=== PATIENT | male | born 1990 | race Caucasian/White ===

== ENCOUNTER 2017-02-25 00:38 | Emergency (ER) | payer SELFPAY ==
[2017-02-25] MEDS ORDERED: NS 0.9% 1000 ML* 1,000 ML IV ONE (01:22)
[2017-02-25] MEDS ORDERED: Tetan/Diph/Pertus SYR(Tdap)* 0.5 ML SYR(BOOSTRIX) use SYR IM ONE (01:26)
[2017-02-25 02:08] LABS: Hematocrit 37 % (42-52); Hemoglobin 12.9 g/dl (14.0-18.0); Mean Corpuscular HGB Conc 35 g/dl (31-36); Mean Corpuscular Hemoglobin 29 pg (27-31); Mean Corpuscular Volume 85 fL (80-94); Mean Platelet Volume 8 um3 (7.4-10.4); Red Cell Distribution Width 13 % (10.5-15); White Blood Count 14.5 10^3/ul (3.5-10.8)
[2017-02-25 02:23] LABS: Albumin 4.5 g/dL (3.2-5.2); BUN/Creatinine Ratio 11.2 (8-20); Calcium 9.1 mg/dL (8.6-10.3); EGFR African American 99.5 (>60); EGFR Non-African American 77.4 (>60); Globulin 2.3 g/dL (2-4); Potassium 3.6 mmol/L (3.5-5.0); Total Bilirubin 0.7 mg/dL (0.2-1.0); Total Protein 6.8 g/dL (6.4-8.9)
[2017-02-25 02:27] LABS: Urine Bilirubin Negative (Negative); Urine Glucose Negative (Negative); Urine Nitrite Negative (Negative)
[2017-02-25] MEDS ORDERED: Iohexol 300* (CONTRAST) 10 ML SDV IV ONE (02:57)
[2017-02-25] MEDS ORDERED: Ibuprofen TAB* 800 MG PO ONE (04:39)
[2017-02-25 05:39] VITALS: BP 105/53
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
== END 2017-02-25 05:48 | disposition home or self-care (01) ==
LOC: ED 00:38
DX: T14.8XXA Other injury of unspecified body region, initial encounter (principal); R55 Syncope and collapse; R42 Dizziness and giddiness; V29.3XXA Motorcycle rider (driver) (passenger) injured in unspecified nontraffic accident, initial encounter; Y93.9 Activity, unspecified; Y92.9 Unspecified place or not applicable; R61 Generalized hyperhidrosis
CPT/HCPCS: 36415; 70450; 71020; 74177; 80053; 81003; 84484; 85025; 85610; 90715; 93005; 99284; A9270-GY; Q9967

== ENCOUNTER 2017-12-10 11:39 | Emergency (ER) | payer BC ==
[2017-12-10 11:53] VITALS: BP 131/72
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
[2017-12-10] MEDS ORDERED: Silver Sulfadiazine 1%* 20 GM TOPICAL ONE (12:07)
== END 2017-12-10 12:24 | disposition home or self-care (01) ==
LOC: UCEAST 11:39
DX: T24.131A Burn of first degree of right lower leg, initial encounter (principal); X19.XXXA Contact with other heat and hot substances, initial encounter; Y93.55 Activity, bike riding; Y92.9 Unspecified place or not applicable
CPT/HCPCS: 16020; 99212; A9270-GY; G0463

== ENCOUNTER 2017-12-11 20:30 | Emergency (ER) | payer BC ==
[2017-12-11] MEDS ORDERED: ceFAZolin 1 GM in Dextrose (*) 1 GM/50 ML BAG IVPB ONE (22:00)
[2017-12-11 22:20] LABS: ABS Basophils 0.1 10^3/ul (0-0.2); ABS Eosinophils 0.1 10^3/ul (0-0.6); ABS Lymphocytes 2.7 10^3/ul (1.0-4.8); ABS Neutrophils 7.2 10^3/ul (1.5-7.7); ABS Nucleated RBC 0 10^3/ul; Eosinophil % 0.8 % (0-6); Hematocrit 40 % (42-52); Hemoglobin 13.7 g/dl (14.0-18.0); Lymphocyte % 24.3 % (25-47); Mean Corpuscular HGB Conc 34 g/dl (31-36); Mean Corpuscular Hemoglobin 29 pg (27-31); Mean Corpuscular Volume 85 fL (80-94); Mean Platelet Volume 7.7 um3 (7.4-10.4); Nucleated Red Blood Cells % 0; Platelet Count 236 10^3/ul (150-450); Red Blood Count 4.71 10^6/ul (4.00-5.40); Red Cell Distribution Width 13 % (10.5-15); White Blood Count 11.1 10^3/ul (3.5-10.8)
[2017-12-11 22:37] LABS: EGFR Non-African American 69.1 (>60)
[2017-12-11] MEDS ORDERED: Bacitracin OINTMENT* 0.5% 0.5 oz TUBE TOPICAL ONE (22:58)
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
[2017-12-11 23:17] VITALS: BP 129/77
== END 2017-12-11 23:16 | disposition home or self-care (01) ==
LOC: ED 20:30
DX: T79.8XXA Other early complications of trauma, initial encounter (principal); T24.001A Burn of unspecified degree of unspecified site of right lower limb, except ankle and foot, initial encounter; L03.115 Cellulitis of right lower limb; I10 Essential (primary) hypertension; J45.909 Unspecified asthma, uncomplicated; X16.XXXA Contact with hot heating appliances, radiators and pipes, initial encounter
CPT/HCPCS: 36415; 80053; 83605; 85025; 87040; 96374; 99282; A9270-GY; J0690

== ENCOUNTER 2019-04-23 12:04 | Emergency (ER) | payer BC ==
--- NOTE | 2019-04-23 12:15 | UC ---
Throat Pain/Nasal Rush HPI - HPI Summary HPI Summary: 28 yo male presents with sore throat. He tells me that for the past week he has had a sore throat that is painful to swallow. He has been taking ibuprofen with mild intermittent relief. He is eating, drinking, and tolerating po. Has been taking his temperature and has NOT had a fever. Denies sinus symptoms, cough, rash, SOB, abdominal pain, n/v, headache, dizziness. - History of Current Complaint Stated Complaint: SORE THROAT Time Seen by Provider: 04/23/19 12:14 Hx Obtained From: Patient Onset/Duration: Sudden Onset Severity: Moderate Pain Intensity: 6 Pain Scale Used: 0-10 Numeric - Allergies/Home Medications Allergies/Adverse Reactions: Allergies Allergy/AdvReac Type Severity Reaction Status Date / Time No Known Allergies Allergy Verified 04/23/19 12:26 Home Medications: Home Medications Dm/PE/Acetaminophen/Doxylamine [[facility] Plus Day-Night Cp] 1 tab PO ONCE PRN 04/23/19 [History Confirmed 04/23/19] Ibuprofen 600 mg PO ONCE PRN 04/23/19 [History Confirmed 04/23/19] PMH/Surg Hx/FS Hx/Imm Hx Respiratory History: Asthma Other History Of: Negative For: Anticoagulant Therapy - Surgical History Surgical History: Yes Surgery Procedure, Year, and Place: [facility], december 2012. Fractured nose as a child, surgical repair. left shoulder as - Family History Known Family History: Positive: Other - Hypothyroidism - Social History Occupation: Employed Full-time Lives: With Family Alcohol Use: Occasionally Substance Use Type: Marijuana Substance Use Comment - Amount & Last Used: occasional Smoking Status (MU): Never Smoked Tobacco - Immunization History Most Recent Influenza Vaccination: 2011 Most Recent Tetanus Shot: pt not sure when Review of Systems All Other Systems Reviewed And Are Negative: No Constitutional: Positive: Negative Skin: Positive: Negative Eyes: Positive: Negative ENT: Positive: Sore Throat Respiratory: Positive: Negative Cardiovascular: Positive: Negative Gastrointestinal: Positive: Negative Neurological: Positive: Negative Psychological: Positive: Negative Physical Exam - Summary Physical Exam Summary: GENERAL: NAD. WDWN. No pain distress. SKIN: No rashes, sores, lesions, or open wounds. HEENT: Head: AT/NC Eyes: EOM intact. Conjunctiva clear without inflammation or discharge. Ears: Hearing grossly normal. TMs intact, no bulging, erythema, or edema. Nose: Nasal mucosa pink and moist. NTTP maxillary and frontal sinus. Throat: Posterior oropharynx without exudates, erythema, or tonsillar enlargement. Uvula midline. NECK: Supple. Nontender. No lymphadenopathy. CHEST: CTAB. No accessory muscle use. Breathing comfortably and in no distress. CV: RRR. Pulses intact. Cap refill <2seconds NEURO: Alert. PSYCH: Age appropriate behavior. Triage Information Reviewed: Yes Vital Signs: Vital Signs: Temp Pulse Resp BP Pulse Ox 98.9 F 78 18 127/79 97 04/23/19 12:21 04/23/19 12:21 04/23/19 12:21 04/23/19 12:21 04/23/19 12:21 Laboratory Tests 04/23/19 12:32 Group A Strep Rapid Negative Vital Signs Reviewed: Yes Throat Pain/Nasal Course/Dx - Course Course Of Treatment: POC strep negative. Suspect pharyngitis. Discussed viral vs bacterial causes with the pt and, given his length of symptoms, he wishes to try antibiotics at this time - Differential Dx/Diagnosis Provider Diagnosis: Pharyngitis Discharge ED - Sign-Out/Discharge Documenting (check all that apply): Patient Departure All imaging exams completed and their final reports reviewed: No Studies - Discharge Plan Condition: Stable Disposition: HOME Prescriptions: Amoxicillin PO (*) [Amoxicillin 500 MG CAP*] 500 mg PO Q12H #14 cap Patient Education Materials: Pharyngitis (ED) Referrals: No Primary Care Phys,NOPCP [Primary Care Provider] - Additional Instructions: If you develop a fever, shortness of breath, chest pain, new or worsening symptoms - please call your PCP or go to the ED immediately. - Billing Disposition and Condition Condition: STABLE Disposition: Home
[2019-04-23 12:26] VITALS: BP 127/79
== END 2019-04-23 12:48 | disposition home or self-care (01) ==
LOC: UCEAST 12:04
DX: J02.9 Acute pharyngitis, unspecified (principal); J45.909 Unspecified asthma, uncomplicated
CPT/HCPCS: 87651; 99212; G0463

== ENCOUNTER 2019-07-02 11:31 | Emergency (ER) | payer SELFPAY ==
[2019-07-02] MEDS ORDERED: Albuterol HFA INHALER* 8 gm MDI INH ONE (12:50)
[2019-07-02 13:01] VITALS: BP 108/64
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
== END 2019-07-02 12:59 | disposition home or self-care (01) ==
LOC: ED 11:31
DX: R06.02 Shortness of breath (principal); J45.909 Unspecified asthma, uncomplicated; I10 Essential (primary) hypertension; R51 Headache
CPT/HCPCS: 99282; A9270-GY